=== PATIENT | female | born 1955 | race Caucasian/White ===

== ENCOUNTER 2022-11-30 10:45 | Emergency (ER) | payer MEDICARE, MEDICAID ==
[~2022-11-30] VITALS: Ht 142.2 cm; Wt 45.5 kg
[~2022-11-30 10:45] MED LIST: ALBU6.7H14 INH; LISI5TAB22 PO
[2022-11-30 10:48] VITALS: BP 203/110
--- NOTE | 2022-11-30 15:06 | NUR ---
PT WAS VERY MANIC REQUESTING TO GO OUTSIDE TO SMOKE ADVISED/ EDUCATED THAT PTS CANNOT LEAVE TO SMOKE. EDUCTAED REGARDING CURRENT CONDITION, PT VERBALIZED UNDERSTANDING. PT AND SO THEN LEFT TO GO SMOKE OUTSIDE. ARRIVED BACK TO BED ASIGNMENT 15 MIN LATER. PT REQUESTS TO LEAVE STATING THAT SHE AND HER SO ARE HUNGRY. 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 EDUCATED PT AGAIN REGARDING CURRENT MEDICAL STATUS, ADVISED THAT SHE STILL NEEDS NEURO MD CONSULT. PT VERBALIZED UNDERSTANDING. ADVISED THAT IF SHE DID NEED TO LEAVE SHE WOULD HAVE TO SIGN OUT AMA. APROX FIVE MIN LATER PT AND SO ELOPED. CHARGE NURSE AND PROVIDER NOTIFIED.
== END 2022-11-30 17:15 | disposition left against medical advice (07) ==
LOC: ER 10:45
DX: S32.019A Unspecified fracture of first lumbar vertebra, initial encounter for closed fracture (principal); W18.39XA Other fall on same level, initial encounter; Y93.89 Activity, other specified; Y92.89 Other specified places as the place of occurrence of the external cause; Y99.8 Other external cause status
CPT/HCPCS: 70450; 72125; 72128; 72131; 99284

== ENCOUNTER 2023-10-29 14:47 | Emergency (ER) | payer BC, MEDICAID ==
[~2023-10-29] VITALS: Ht 144.8 cm; Wt 36.9 kg
[2023-10-29 14:50] VITALS: BP 160/72
[2023-10-29] MEDS ORDERED: AMOX-115 PO (16:53)
[2023-10-29] MEDS ORDERED: PRED10TA23 PO (16:53)
[2023-10-29] MEDS: ipratropium/albuterol 3ml nebule NEB ONE (17:01)
[2023-10-29 17:04] VITALS: PULSE 100; RESP 24; O2SAT 95
[2023-10-29 17:10] VITALS: PULSE 102; RESP 22; O2SAT 99
[2023-10-29 17:36] VITALS: TEMP 98.7
== END 2023-10-29 17:38 | disposition home or self-care (01) ==
LOC: ER 14:48
DX: J06.9 Acute upper respiratory infection, unspecified (principal); I10 Essential (primary) hypertension; Z79.2 Long term (current) use of antibiotics; Z79.899 Other long term (current) drug therapy
CPT/HCPCS: 71045; 94640; 94760; 99283